=== PATIENT | male | born 1995 | race Caucasian/White ===

== ENCOUNTER 2024-10-18 03:36 | Emergency (ER) | payer OTHER, SELFPAY ==
[2024-10-18] VITALS (10 sets, daily range): BP systolic 86–110; BP diastolic 54–76; PULSE 51–92; BMI 26.9
[2024-10-18 04:05] LABS: % Basophils 0.2 % (0-2); % Eosinophils 0.3 % (0-6); % Immature Granulocytes 0.3 % (0-0.5); % Lymphocytes 25.5 % (20.5-51.1); % Monocytes 3.3 % (1.7-9.3); % Neutrophils 70.4 % (42.2-75.2); Absolute Lymphocytes 2.8 10^3/uL (1.2-3.4); Absolute Monocytes 0.4 10^3/uL (0.1-0.6); Absolute Neutrophils 7.8 10^3/uL (1.4-6.5); Hematocrit 47.7 % (39.0-52.0); Hemoglobin 16.6 g/dL (13.0-18.0); Mean Corp Hgb Conc. 34.8 g/dL (33.0-37.0); Mean Corpuscular Hgb 29.9 pg (27.0-31.0); Mean Corpuscular Volume 85.8 fL (80.0-94.0); Mean Platelet Volume 11.5 fL (7.4-10.4); Nucleated Red Blood Cells % 0 % (-); Platelet Count 210 10^3/uL (130-400); Red Blood Cell Count 5.56 10^6/uL (4.70-6.10); Red Cell Dist. Width 11.9 % (11.5-14.5); White Blood Cell Count 11.1 10^3/uL (4.8-10.8)
--- NOTE | 2024-10-18 04:10 | ED.GENMED ---
History of Present Illness
General
Chief Complaint: Fall
Source: patient
Exam Limitations: none
Time Seen by Provider: 10/18/24 03:41
Nursing documentation reviewed up to this point in time: agreed with
History of Present Illness
History of Present Illness:
This is a 29-year-old gentleman currently incarcerated at [facility] since May 2024. He states while walking to the bathroom he became lightheaded, tunnel vision and proceeded to pass out falling backwards striking the
back of his head.
His cellmate did not witness the event but heard a thud and then notified nursing home guards. There was no report of seizure activity, he was not incontinent of bowel nor bladder.
Patient states he has history of cardiogenic syncope and has had similar episodes of passing out generally once per year. He states he has been evaluated by senior systems analyst and has undergone Holter monitor which showed sinus bradycardia, unremarkable
sleep study.
He does note mild generalized headache but denies neck nor back pain, no chest pain or cough nor shortness of breath, no abdominal pain, no nausea nor vomiting. Prior to tonight he has been feeling well, no recent illnesses.
His only daily medication is Prozac. He has also been taking ibuprofen intermittently for right shoulder pain.
He has history of traumatic brain injury at 3 years of age requiring surgery and a scalp plate. History of TBI seizure disorder from age 3 to age 12. No recurrent seizures since age 12 and has been off of seizure medications since that time.
Past History
Past History
ED Past Medical History: Asthma, Seizures (Traumatic brain injury 3 years of age, TBI related seizure disorder age 3 to age 12. No recurrent seizures since age 12.) and Other (traumatic brain injury, bradycardia, cardiogenic syncope)
ED Past Surgical History: Other (Skull fracture with metal plate.)
Social History
Tobacco: Former smoker
Alcohol: Former
Drug: Other (Prior history of marijuana use)
Personal: Single
Living: nursing home
Employment: Not employed
Family History
Family History: Other (Noncontributory)
Phy Exam
Physical Exam
Physical Exam:
GENERAL: 29-year-old gentleman appears his stated age, awake and alert, pleasant, easily communicative and in no acute distress. Accompanied by 2 nursing home guards.
EYE: pupils equal and reactive. anicteric. The head is normocephalic, atraumatic.
NECK: Supple, nontender, full range of motion without difficulty nor pain, no meningismus, no significant adenopathy.
ENT: posterior pharynx is clear, oral mucosa is moist. TM clear b/l, nares patent.
CARDIAC: Regular rate and rhythm. no murmur.
LUNGS: Clear breath sounds bilaterally, no acute respiratory distress, no wheezes/rales/rhonchi
ABDOMEN: Soft, nondistended, without focal tenderness, no r/g, no cvat. normoactive BS.
NEUROLOGICAL: Alert and oriented x3, no focal neuro deficits. Gait is steady.
SKIN: Warm and dry, normal color, skin intact. No rash.
MUSCULOSKELETAL: No C/C/E. peripheral pulses are full and equal b/l. No palpable tenderness.
PSYCH: Normal and appropriate interaction.
Course
Orders/Labs/Results
Orders:
Orders
10/18/24 03:41
EKG [Electrocardiogram (*1)] Urgent
Reason for Study: Syncope
10/18/24 03:42
EKG- Treatment ONCE
10/18/24 03:43
CT Head W/o Iv Contrast Urgent
Comment:
Reason For Exam: syncope, head injury, headache
EKG- Treatment ONCE
10/18/24 03:48
Complete Blood Count/With Diff Urgent
Comprehensive Metabolic Panel Urgent
Troponin I Urgent
10/18/24 05:58
Orthostatic VS- Treatment ONCE
10/18/24 06:08
0.9% Sodium Chloride 1000 ml [Nss] 1,000 ml IV BOLUS
Abnormal Lab Results
10/18/24
03:48
WBC 11.1 H 10^3/uL
(4.8-10.8)
MPV 11.5 H fL
(7.4-10.4)
Absolute Neuts (auto) 7.8 H 10^3/uL
(1.4-6.5)
Glucose 103 H mg/dl
(70-99)
Albumin 5.1 H g/dl
(3.5-5.0)
10/18/24 03:48
10/18/24 03:48
Vital Signs
Initial and Last Documented VS:
Initial Vital Signs
BP
110/76
10/18/24 03:47
Last Documented Vital Signs
Temp Pulse Resp BP Pulse Ox
97.9 F 51 14 99/63 96
10/18/24 03:50 10/18/24 06:30 10/18/24 06:30 10/18/24 05:00 10/18/24 06:30
MDM/Problems Addressed
Differential Diagnosis Includes:
Concern for recurrent syncope, other consideration is seizure.
Patient has remote history of TBI at age 3 with seizure disorder age 3 to age 12. Has been off of seizure medication since age 12 and no recurrent seizure since then.
More recently, over the past several years he has been suffering with intermittent episodes of syncope, similar prodrome of lightheadedness, tunnel vision with last episode over a year ago.
History is most consistent with syncope, vasovagal in nature versus bradycardia arrhythmia. Less likely seizure related.
Will check labs, EKG, CT of the head and ekg monitor tech.
Has been incarcerated since May of this year. Remote history of marijuana and alcohol use but no access to these currently.
Clinically well in appearance.
Chronic conditions affecting care: Neurological disorder (TBI at age 3 with seizure disorder age 3 to age 12.) and Other (History of neurocardiogenic syncope)
Acute Exacerbation and/or Progression of Chronic Illness: Other (Neurocardiogenic syncope)
*Radiology
Radiology exam reviewed: radiology read reviewed (CT of the head is unremarkable.)
*Pulse Oximetry
Patient hypoxic: no
*EKG
Interpreted by ED Provider?: Yes
Comparison EKG: no changes (Unchanged from previous March 2020)
Rate: bradycardiac
Rhythm: sinus
Bastian: normal axis
Interval: normal interval
QRS Pattern: normal QRS
Ischemia: no ischemia
*Seafood Technology Specialist Interpretation
Rate: normal and bradycardiac
Interpretation: normal
Rhythm: sinus
*Critical Care Note
Total Time (30-74mins, 75-104mins- exclusive of procedures): Not Applicable
Update Note
Update Note:
06:00
Patient remains asymptomatic.
Monitor shows sinus bradycardia to normal sinus rhythm. No pauses. Remains hemodynamically stable. CT of the head is unremarkable.
Laboratory studies unremarkable. Troponin is negative.
Will check orthostatic vital signs and if negative will plan for discharge back to [facility].
06:10
Orthostatic vital signs are positive. Patient mitts to mild lightheadedness with standing.
Will give 1 L normal saline solution and then recheck.
Will plan for follow-up with cardiology.
ED Attending Note
-
Portions of this chart may have been created with voice recognition software.� Occasional wrong word or��sound alike� substitutions may have occurred due to the inherent limitations of voice recognition software.
Discharge Plan
Departure
Patient Disposition: Group Home
Date of Disposition: 10/18/24
Time of Disposition: 06:33
Discharge Problem:
Syncope and collapse, Orthostasis
Instructions: Syncope (fainting)
Prescriptions:
No Action
Prozac
PO DAILY
Referrals:
[facility] [Family Provider] -
Mona Santos MD [Active] - Call in 1-3 days for appt
Interventions
Interventions:
*Risk Screen - Suicide Last Done: 10/18/24 03:42
*General Assessment Last Done: 10/18/24 03:37
*Neglect/Abuse Screening Last Done: 10/18/24 03:37
ED- Fall Risk Assessment Last Done: 10/18/24 04:01
*ED COVID-19 Vaccine History Last Done: 10/18/24 03:42
ED-Musculoskeletal Assessment Last Done: 10/18/24 04:01
ED- Neurological Assessment Last Done: 10/18/24 04:01
ED-Skin Assessment Last Done: 10/18/24 04:01
Discharge Date and Time
Print Language: LITHUANIAN
[2024-10-18 04:32] LABS: Troponin I < 0.012 ng/ml
[2024-10-18 04:33] LABS: ALT (SGPT) 15 U/L (0-50); AST (SGOT) 22 U/L (17-59); Albumin 5.1 g/dl (3.5-5.0); Alkaline Phosphatase 60 U/L (38-126); Blood Urea Nitrogen 20 mg/dl (9-20); Calcium 9.8 mg/dl (8.4-10.2); Carbon Dioxide 27 mmol/L (22-30); Chloride 100 mmol/L (98-107); Estimated Creatinine Clearance 112 ml/min; Glucose 103 mg/dl (70-99); Potassium 4.6 mmol/L (3.5-5.1); Sodium 140 mmol/L (135-145); Total Bilirubin 0.5 mg/dl (0.2-1.3); Total Protein 7.9 g/dl (6.3-8.2); eGFR > 60.00
[2024-10-18] MEDS: NSS 1000 IV (06:13)
== END 2024-10-18 08:11 ==
LOC: EMR 03:36
PROVIDERS: EMERGENCY PHYSICIAN Emergency Medicine
DX: R55 Syncope and collapse (principal); S09.90XA Unspecified injury of head, initial encounter; W19.XXXA Unspecified fall, initial encounter; Z87.891 Personal history of nicotine dependence
CPT/HCPCS: 99285; 96360; 70450; 80053; 84484; 85025; 93005